=== PATIENT | female | born 1950 ===

== ENCOUNTER 2019-07-26 05:43 | Inpatient (IN) ==
[2019-07-14 12:30] LABS: Basophils # 0.1 10*3/uL (0.0-0.2); Basophils % 0.7 % (0.0-0.8); Eosinophils # 0.3 10*3/uL (0.0-0.87); Eosinophils % 3.7 % (0.00-10.9); Hematocrit 34.6 VOL% (35.7-47.0); Hemoglobin 11.5 GM/DL (12.0-16.0); Immature Granulocytes % 0.3 %; Immature Granulocytes Absolute 0.02 #; Lymphocytes # 2.3 10*3/uL (1.4-4.0); Mean Corpuscular HGB Conc 33.2 GM/DL (32-36); Mean Corpuscular Volume 94.5 FL (87-102); Mean Platelet Volume 10.1 FL (9.6-12.0); Neutrophils % 56.3 % (38.7-73.9); Platelet Count 213 T/CUMM (130-400); Red Blood Count 3.66 MC/CUMM (3.8-5.5); White Blood Count 7.1 T/CUMM (4-12)
[2019-07-14 13:01] LABS: Albumin 4.1 G/DL (3.4-5.0); Bilirubin,Total 0.6 MG/DL (0.2-1.0); Calcium 8.3 MG/DL (8.5-10.1); Osmolality,Calculated 272.8 MOS/KG (273-304); Total Protein 7.2 G/DL (6.4-8.3)
[2019-07-26] MEDS ORDERED: ACETAMINOPHEN 500 MG TABLET PO ONE (06:00)
[2019-07-26] MEDS ORDERED: DIAZEPAM 5 MG TABLET PO ONE (06:00)
[2019-07-26] MEDS ORDERED: SCOPOLAMINE 1.5 MG PATCH TRANSDERM ONE ×2 (06:00→06:09)
[2019-07-26] MEDS ORDERED: FAMOTIDINE 20 MG TABLET PO ONE (06:00)
[2019-07-26] MEDS ORDERED: ceFAZolin 1,000 MG VIAL ONE (06:09)
[2019-07-26] MEDS ORDERED: ACETAMINOPHEN 500 MG TABLET ONE (06:09)
[2019-07-26] MEDS ORDERED: DIAZEPAM 5 MG TABLET ONE (06:09)
[2019-07-26] MEDS ORDERED: FAMOTIDINE 20 MG TABLET ONE (06:09)
[2019-07-26] MEDS: LACTATED RINGERS 1,000 ML IV SCH ×3 (06:25→20:49)
[2019-07-26] MEDS ORDERED: LIDOCAINE 1%/EPI INJ 20 ML VIAL ONE (06:44)
[2019-07-26] MEDS ORDERED: BUPIVACAINE 0.5% /EPI 10 ML VIAL ONE (06:44)
[2019-07-26] MEDS ORDERED: BUPIVACAINE 0.5% 50 ML VIAL ONE (06:46)
[2019-07-26] MEDS ORDERED: ceFAZolin 1,000 MG in SYRINGE 1 EACH IV ONE (07:00)
[2019-07-26] MEDS ORDERED: TISSUE ADHESIVE 1 EACH APPLICATOR TOP ONE (08:36)
[2019-07-26] MEDS ORDERED: DEXAMETHASONE 4 MG/1 ML VIAL ONE (08:46)
[2019-07-26] MEDS ORDERED: EPINEPHrine 1 MG/ML VIAL ONE (08:46)
[2019-07-26] MEDS ORDERED: BUPIVACAINE MPF 0.25% 30 ML VIAL ONE (08:46)
[2019-07-26] MEDS ORDERED: PROPOFOL 200 MG/20 ML VIAL IV ONE (09:28)
[2019-07-26] MEDS ORDERED: LIDOCAINE 2% 5 ML VIAL ONE (09:28)
[2019-07-26] MEDS ORDERED: GLYCOPYRROLATE 0.4 MG/2 ML VIAL ONE (09:29)
[2019-07-26] MEDS ORDERED: fentaNYL 100 MCG/2 ML VIAL ONE (09:29)
[2019-07-26] MEDS ORDERED: MIDAZOLAM 2 MG/2 ML VIAL ONE (09:29)
[2019-07-26] MEDS ORDERED: SEVOFLURANE 1 UNIT/15 MINUTE INH ONE (09:29)
[2019-07-26] MEDS ORDERED: ONDANSETRON 4 MG/2 ML VIAL ONE (09:29)
[2019-07-26] MEDS ORDERED: KETOROLAC 30 MG/1 ML VIAL ONE (09:29)
[2019-07-26] MEDS ORDERED: SUCCINYLCHOLINE 200 MG/10 ML VIAL ONE (09:30)
[2019-07-26] MEDS ORDERED: LACTATED RINGERS 1,000 ML IV ONE (09:30)
[2019-07-26] MEDS ORDERED: ROCURONIUM 100 MG/10 ML VIAL IV ONE (09:30)
[2019-07-26] MEDS ORDERED: PHENYLEPHRINE 1 MG/10 ML SYRINGE IV ONE (09:30)
[2019-07-26] MEDS ORDERED: NEOSTIGMINE 10 MG/10 ML VIAL ONE (09:30)
[2019-07-26] MEDS ORDERED: HYDROmorphone 2 MG/1 ML VIAL ONE (09:33)
[2019-07-26] MEDS: HYDROmorphone 2 MG/1 ML VIAL IV PRN ×3 (09:37→10:00)
[2019-07-26] MEDS ORDERED: ACETAMINOPHEN 325 MG TABLET PO PRN ×2 (10:55→13:29)
[2019-07-26] MEDS ORDERED: BISACODYL 5 MG TABLET PO PRN (10:55)
[2019-07-26] MEDS ORDERED: ALBUTEROL/IPRATROPIUM 3 ML NEB RESP TX PRN (10:55)
[2019-07-26] MEDS ORDERED: ONDANSETRON 4 MG/2 ML VIAL IV PRN (10:55)
[2019-07-26] MEDS ORDERED: HYDROmorphone 2 MG/1 ML VIAL IV PRN ×2 (10:55)
[2019-07-26] MEDS: KETOROLAC 10 MG TABLET PO SCH ×3 (12:48→23:37)
[2019-07-26] MEDS: ceFAZolin 2,000 MG in PREMIX 1 EACH IV SCH (17:52)
[2019-07-27] MEDS: ceFAZolin 2,000 MG in PREMIX 1 EACH IV SCH (02:51)
[2019-07-27] MEDS ORDERED: ceFAZolin 2,000 MG in PREMIX 1 EACH IV SCH (03:00)
[2019-07-27] MEDS: LACTATED RINGERS 1,000 ML IV SCH ×3 (05:20→19:06)
[2019-07-27] MEDS: ENOXAPARIN 40 MG/0.4 ML SYRINGE SUBCUT SCH (05:20)
[2019-07-27] MEDS: KETOROLAC 10 MG TABLET PO SCH ×4 (05:48→23:00)
[2019-07-27 06:14] LABS: Basophils % 0.3 % (0.0-0.8); Eosinophils # 0.1 10*3/uL (0.0-0.87); Eosinophils % 0.5 % (0.00-10.9); Hematocrit 31.2 VOL% (35.7-47.0); Hemoglobin 10.7 GM/DL (12.0-16.0); Immature Granulocytes % 0.3 %; Immature Granulocytes Absolute 0.04 #; Lymphocytes # 1.4 10*3/uL (1.4-4.0); Lymphocytes % 11.7 % (21.3-54.2); Mean Corpuscular HGB Conc 34.3 GM/DL (32-36); Mean Corpuscular Volume 92.9 FL (87-102); Mean Platelet Volume 10.8 FL (9.6-12.0); Monocytes % 6.3 % (1.7-12.7); Neutrophils % 80.9 % (38.7-73.9); Platelet Count 199 T/CUMM (130-400); Red Blood Count 3.36 MC/CUMM (3.8-5.5); Red Cell Distribution Width 12.8 % (9.3-17.3); White Blood Count 11.7 T/CUMM (4-12)
[2019-07-27 06:32] LABS: Calcium 7.8 MG/DL (8.5-10.1); Osmolality,Calculated 264.4 MOS/KG (273-304)
[2019-07-27] MEDS: PANTOPRAZOLE 40 MG TABLET PO SCH (09:52)
[2019-07-27] MEDS: CETIRIZINE 10 MG TABLET PO SCH (09:52)
[2019-07-27] MEDS: LISINOPRIL 5 MG TABLET PO SCH (09:52)
[2019-07-27] MEDS: CYANOCOBALAMIN 500 MCG TABLET PO SCH (09:52)
[2019-07-28] MEDS: KETOROLAC 10 MG TABLET PO SCH ×2 (04:56→10:01)
[2019-07-28] MEDS: ENOXAPARIN 40 MG/0.4 ML SYRINGE SUBCUT SCH (04:56)
[2019-07-28] MEDS: LACTATED RINGERS 1,000 ML IV SCH (05:42)
[2019-07-28] MEDS: CETIRIZINE 10 MG TABLET PO SCH (09:56)
[2019-07-28] MEDS: LISINOPRIL 5 MG TABLET PO SCH (09:56)
[2019-07-28] MEDS: CYANOCOBALAMIN 500 MCG TABLET PO SCH (09:57)
[2019-07-28] MEDS: PANTOPRAZOLE 40 MG TABLET PO SCH (09:57)
[2019-07-28 11:37] VITALS: BP 168/73
[2019-08-02] MEDS ORDERED: ERGOCALCIFEROL 50,000 UNIT CAPSULE PO SCH (09:00)
== END 2019-07-28 13:00 | disposition home or self-care (01) | DRG 416 ==
LOC: N.OR 05:43 → N.SDSINP 05:43 → N.3E 10:55
PROVIDERS: ADMIT Surgery; ATTEND Surgery
PROC: LAPCHOL (2019-07-26 07:00)